=== PATIENT | male | born 1975 | race Caucasian/White ===

== ENCOUNTER 2023-01-07 06:57 | Outpatient (CLI) | payer BC, SELFPAY ==
--- NOTE | ~2023-01-07 | MR_ITS ---
EXAMINATION: MR shoulder RT wo con DATE: 01/07/2023 07:29 INDICATION: Right shoulder pain. TECHNIQUE: Magnetic resonance imaging (MRI) of the right shoulder was performed without intravenous c ontrast. Sequences included axial PD-weighted FS FSE, coronal oblique PD-weighted FS FSE and T2-weigh jesusita FS FSE, and sagittal oblique T2-weighted FS FSE and T1-weighted FSE. COMPARISON: None. FINDINGS: Coracoacromial arch: The acromion undersurface is curved in morphology (type II). There is moderate acromioclavicular join t osteoarthritis including inferiorly directed osteophytes. There is mild subacromial/subdeltoid burs itis. Rotator cuff: There is mild supraspinatus and infraspinatus tendinopathy with shallow bursal sided fraying. There i s an interstitial tear of infraspinatus tendon measuring 11 mm proximal to distal by 6 mm anterior to posterior by 30% tendon thickness. Teres minor tendon is normal. Subscapularis tendon is normal. The re is no asymmetric fatty atrophy of the rotator cuff muscle bellies. Biceps tendon and glenoid labrum: Biceps tendon is in bicipital groove. There is mild intra-articular biceps tendinopathy. There is tea ring of posterior, superior, anterior, and anteroinferior labrum. Fluid: There is a small glenohumeral joint effusion. 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 There is an o ld impaction fracture deformity of posterolateral aspect of humeral head (Hill-Sachs fracture deformi ty). There is partial-thickness cartilage loss of anterior glenoid. There is cartilage surface irregu larity of humeral head. IMPRESSION: 1. Partial-thickness rotator cuff tear. 2. 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 3. Mild glenohumeral joint chondrosis. 4. Moderate acromioclavicular joint osteoarthritis. 5. Small glenohumeral joint effusion. 6. Mild subacromial/subdeltoid bursitis. 7. Mild intra-articular biceps tendinopathy. Reviewed, dictated and finalized at location E. /ENDANGERED SPECIES SPECIALIST
== END 2023-01-07 06:58 ==
LOC: MICIMG 07:00
PROVIDERS: PCP Orthopaedic Surgery; Visit Provider Orthopaedic Surgery
DX: M19.011 Primary osteoarthritis, right shoulder (principal); M75.101 Unspecified rotator cuff tear or rupture of right shoulder, not specified as traumatic; M75.51 Bursitis of right shoulder; M75.21 Bicipital tendinitis, right shoulder
CPT/HCPCS: 73221